=== PATIENT | male | born 1955 | race Caucasian/White ===

== ENCOUNTER 2017-04-18 23:10 | Emergency (ER) | payer OTHER ==
[~2017-04-18] VITALS: Ht 175.3 cm; Wt 84.2 kg
[~2017-04-18 23:10] MED LIST: LORTAB 5-325 M1 EACH PO; NAPROSYN500 MG PO; NO HOME MEDS; OSTEO BI-FLEX1 EAC3 PO
[2017-04-19 00:27] LABS: MCH 30.7 PG (29.0-34.0); MCHC 34.4 G/DL (30.0-36.0); MCV 89.2 FL (86-99); MEAN PLAT.VOLUME 9.5 uM^3 (9.0-12.4); PLATELET COUNT 227 K/uL (156-360); RBC DIS.WIDTH-CV 12.3 % (11.8-14.6); RBC DIS.WIDTH-SD 40.7 % (39-53); RED BLOOD COUNT 4.82 M/uL (4.00-5.50); WHITE BLOOD COUNT 12.5 K/uL (4.1-10.2)
[2017-04-19 00:30] LABS: CHLORIDE 102 mEq/L (99-109); POTASSIUM 4.1 mEq/L (3.7-5.4); SODIUM 139 mEq/L (136-147)
[2017-04-19 00:32] LABS: GLUCOSE 163 mg/dL (70-99)
[2017-04-19 00:33] LABS: ANION GAP 14 MEQ/L (2-14)
[2017-04-19 00:34] LABS: TOTAL BILIRUBIN 0.4 mg/dL (0.0-1.0)
[2017-04-19 00:35] LABS: ALKALINE PHOSPHATASE 93 IU/L (3-129)
[2017-04-19 00:36] LABS: GFR ESTIMATE (CALCULATED) > 59 mL/min/
[2017-04-19 00:37] LABS: UREA NITROGEN (BUN) 15 mg/dL (9-23)
[2017-04-19 01:13] LABS: ADD MIUA? NO; BILIRUBIN NEGATIVE; BLOOD NEGATIVE; COLOR YELLOW ((YELLOW)); GLUCOSE (STRIP) NEGATIVE; KETONES NEGATIVE; LEUKOCYTES NEGATIVE; NITRITE NEGATIVE; PROTEIN (STRIP) NEGATIVE; SPECIFIC GRAVITY 1.009 (1.000-1.030); UCUL ADDED? NO; UROBILINOGEN 0.2 MG/DL (0.2-1.0)
[2017-04-19 02:34] VITALS: BP 127/88
== END 2017-04-19 02:37 | disposition home or self-care (01) ==
LOC: EME 23:10
PROVIDERS: Physician Assistant
PROC: 0T9B70Z Drainage of Bladder with Drainage Device, Via Natural or Artificial Opening (ICD-10-PCS; principal; 2017-04-18)
DX: R33.8 Other retention of urine (principal); R10.9 Unspecified abdominal pain; N40.1 Benign prostatic hyperplasia with lower urinary tract symptoms
CPT/HCPCS: 74176; 80053; 81003; 85027; 99281; 99284

== ENCOUNTER 2018-04-03 13:44 | Emergency (ER) | payer OTHER ==
[~2018-04-03] VITALS: Ht 175.3 cm; Wt 83.3 kg
[2018-04-03 14:19] VITALS: BP 149/103
[2018-04-03 16:23] LABS: HEMATOCRIT 46.8 % (38.0-50.0); HEMOGLOBIN 16.3 G/DL (12.5-16.6); MCH 31.2 PG (29.0-34.0); MCHC 34.8 G/DL (30.0-36.0); MCV 89.5 FL (86-99); PLATELET COUNT 244 K/uL (156-360); RBC DIS.WIDTH-CV 12.6 % (11.8-14.6); RBC DIS.WIDTH-SD 41.1 % (39-53); RED BLOOD COUNT 5.23 M/uL (4.00-5.50); WHITE BLOOD COUNT 8.8 K/uL (4.1-10.2)
[2018-04-03 16:33] LABS: ALBUMIN 4.5 g/dL (3.2-4.8); CHLORIDE 108 mEq/L (99-109); SODIUM 144 mEq/L (136-147)
[2018-04-03 16:36] LABS: GLUCOSE 109 mg/dL (70-99); TOTAL PROTEIN 7.4 g/dL (6.4-8.3)
[2018-04-03 16:38] LABS: TOTAL BILIRUBIN 0.8 mg/dL (0.0-1.0)
[2018-04-03 16:39] LABS: ALKALINE PHOSPHATASE 103 IU/L (3-129); CREATININE 0.9 mg/dL (0.6-1.3); GFR ESTIMATE (CALCULATED) > 59 mL/min/ (58.99-99999)
[2018-04-03 16:40] LABS: UREA NITROGEN (BUN) 16 mg/dL (9-23)
[2018-04-03 16:41] LABS: AST (GOT) 22 IU/L (2-34)
[2018-04-03 16:42] LABS: ALT (GPT) 23 IU/L (3-49)
[2018-04-03] MEDS ORDERED: PROSCAR5 MG PO (18:28)
[2018-04-03] MEDS ORDERED: FLOMAX0.4 MG PO (18:28)
== END 2018-04-03 18:55 | disposition home or self-care (01) ==
LOC: AMB 13:44 → EME 13:44
PROVIDERS: Nurse Practitioner Family
PROC: 0DC58ZZ Extirpation of Matter from Esophagus, Via Natural or Artificial Opening Endoscopic (ICD-10-PCS; principal; 2018-04-03)
DX: T18.128A Food in esophagus causing other injury, initial encounter (principal); X58.XXXA Exposure to other specified factors, initial encounter; K22.2 Esophageal obstruction; K22.10 Ulcer of esophagus without bleeding; K26.9 Duodenal ulcer, unspecified as acute or chronic, without hemorrhage or perforation; Q39.0 Atresia of esophagus without fistula
CPT/HCPCS: 70360; 71046; 80053; 82948; 85027; J2250; J3010